=== PATIENT | female | born 1965 | race Caucasian/White ===

== ENCOUNTER 2018-09-03 22:58 | Emergency (ER) | payer SELFPAY ==
[~2018-09-03] VITALS: Ht 165.1 cm; Wt 90.9 kg
[2018-09-03] MEDS ORDERED: metoprolol tartrate 50mg tablet PO ONE (23:15)
[2018-09-03] MEDS ORDERED: ondansetron/PF 4mg/2ml inj IV ONE (23:20)
[2018-09-03] MEDS ORDERED: ondansetron 4mg rapidly disintigrating tab PO ONE (23:20)
[2018-09-03] MEDS ORDERED: normal saline 1000ML IV soln IVB ONE (23:20)
[2018-09-03 23:35] LABS: BASOPHILS # (AUTO) 0.1 X10'3 (0-0.2); BASOPHILS % (AUTO) 0.9 % (0-1); EOSINOPHILS # (AUTO) 0.2 X10'3 (0-0.9); EOSINOPHILS % (AUTO) 1.6 % (0-6); HEMATOCRIT 35.7 % (35.0-45.0); HEMOGLOBIN 10.9 g/dl (12.0-16.0); LYMPHOCYTES # (AUTO) 2.3 X10'3 (1.1-4.8); LYMPHOCYTES % (AUTO) 22.6 % (21-51); MEAN CORPUSCULAR HEMOGLOBIN 22.8 PG (27.0-31.0); MEAN CORPUSCULAR HGB CONC 30.6 g/dL (33.0-36.5); MEAN CORPUSCULAR VOLUME 74.5 FL (78-98); MEAN PLATELET VOLUME 8.2 FL (7.4-10.4); MONOCYTES # (AUTO) 0.8 X10'3 (0-0.9); MONOCYTES % (AUTO) 7.6 % (2-12); NEUTROPHILS # (AUTO) 6.9 X10'3 (1.8-7.7); NEUTROPHILS % (AUTO) 67.3 % (42-75); PLATELET COUNT 289 X10'3 (140-440); RED BLOOD COUNT 4.79 X10'6 (4.20-5.60); RED CELL DISTRIBUTION WIDTH 17.4 % (11.5-14.5); WHITE BLOOD COUNT 10.2 X10'3 (4.5-11.0)
[2018-09-03 23:48] LABS: ALANINE AMINOTRANSFERASE 20 U/L (12-78); ALBUMIN 3.5 G/DL (3.4-5.0); ALBUMIN/GLOBULIN RATIO 0.9 (1.1-1.5); ALKALINE PHOSPHATASE 76 IU/L (46-116); ANION GAP 12 (8-16); ASPARTATE AMINO TRANSFERASE 10 U/L (10-37); BILIRUBIN,TOTAL 0.2 MG/DL (0.1-1.0); BLOOD UREA NITROGEN 16 MG/DL (7-18); BUN/CREATININE RATIO 14.8 (6.6-38.0); CALCIUM 10.4 MG/DL (8.5-10.1); CHLORIDE 99 MMOL/L (99-107); CREATININE 1.08 MG/DL (0.40-0.90); GLUCOSE 373 MG/DL (70-104); POTASSIUM 3.8 MMOL/L (3.5-5.1); SODIUM 136 MMOL/L (135-145); TOTAL CARBON DIOXIDE 24.7 MMOL/L (24-32); TOTAL PROTEIN 7.6 G/DL (6.4-8.2); eGFR 53 ML/MIN
[2018-09-03 23:49] LABS: PARTIAL THROMBOPLASTIN TIME 22 SECONDS (22-32)
[2018-09-03] MEDS ORDERED: insulin regular, human 10 units/0.1 ml syringe SQ ONE (23:50)
[2018-09-03] MEDS ORDERED: insulin regular, human 10 units/0.1 ml syringe IV ONE (23:50)
[2018-09-03] MEDS ORDERED: ketorolac trometh. 30mg/ml inj. IV ONE (23:55)
[2018-09-04] MEDS ORDERED: LISI40TA4 PO (00:17)
[2018-09-04] MEDS ORDERED: HYDROcodone/acetaminophen 5mg/325mg tablet PO ONE (00:20)
[2018-09-04] MEDS ORDERED: HYDROmorphone inj. 0.5 MG/0.5 ML DISP.SYRIN IV ONE ×2 (01:00→04:30)
[2018-09-04] MEDS ORDERED: LORazepam 2 mg/ml vial IV ONE ×2 (01:00→12:05)
[2018-09-04 01:14] LABS: D-DIMER 1.41 MG/L FEU (0-0.50)
[2018-09-04] MEDS ORDERED: LISI-600 PO (01:41)
[2018-09-04] MEDS ORDERED: METF1000 PO (01:41)
[2018-09-04] MEDS ORDERED: ondansetron/PF 4mg/2ml inj IV ONE (04:30)
[2018-09-04] MEDS ORDERED: fentaNYL/PF 50MCG/1 ML 2ML syringe IV ONE ×2 (06:40→10:30)
[2018-09-04] MEDS ORDERED: proCHLORperazine 10 MG/2 ml inj IV ONE (06:40)
[2018-09-04] MEDS ORDERED: iohexol 300mg/ml 100ml inj. ONE (10:39)
--- NOTE | 2018-09-04 11:10 | NUR ---
PT OUT GETING HER 2ND CT SCAN HEAD.
[2018-09-04] MEDS: MESSAGE TO NURSING PO NR ×2 (11:30→14:05)
--- NOTE | 2018-09-04 11:43 | NUR ---
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 SCOTT KEANE NOTIFIED.
[2018-09-04] MEDS ORDERED: BUTA-281 PO (13:28)
[2018-09-04] MEDS ORDERED: ONDA4TAB12 PO (13:28)
--- NOTE | 2018-09-04 13:43 | NUR ---
called pt friend she will come and get her Renay [phone]
[2018-09-04 13:58] VITALS: BP 140/69
[2018-09-04] MEDS ORDERED: DIPH25CA83 PO (14:01)
== END 2018-09-04 14:13 | disposition home or self-care (01) ==
LOC: ER 22:59
DX: R51 Headache (principal); E11.65 Type 2 diabetes mellitus with hyperglycemia; I10 Essential (primary) hypertension; Z79.84 Long term (current) use of oral hypoglycemic drugs; Z79.899 Other long term (current) drug therapy; Z86.73 Personal history of transient ischemic attack (TIA), and cerebral infarction without residual deficits
CPT/HCPCS: 36415; 70450; 70460; 70544; 70551; 71045; 80053; 82948; 84484; 85025; 85379; 85610; 85730; 93005; 96372; 96374; 96375; 96376; 99284; J0780; J1170; J1815; J1885; J2060; J2405; J3010; J7030; Q9967